=== PATIENT | male | born 1970 | race Caucasian/White ===

== ENCOUNTER 2018-06-26 00:27 | Emergency (ER) | payer OTHER ==
[~2018-06-26] VITALS: Ht 180.3 cm; Wt 93.3 kg
[2018-06-26 04:04] LABS: HEMATOCRIT 39.1 % (38.0-50.0); HEMOGLOBIN 13.2 G/DL (12.5-16.6); MCH 30.1 PG (29.0-34.0); MCHC 33.8 G/DL (30.0-36.0); MCV 89.1 FL (86-99); PLATELET COUNT 257 K/uL (156-360); RBC DIS.WIDTH-CV 13.2 % (11.8-14.6); RBC DIS.WIDTH-SD 43.3 % (39-53); RED BLOOD COUNT 4.39 M/uL (4.00-5.50); WHITE BLOOD COUNT 11.7 K/uL (4.1-10.2)
[2018-06-26 04:09] LABS: INTER. NORMALIZED RATIO 1.1
[2018-06-26 04:12] LABS: PTT 26.8 SEC (25-37)
[2018-06-26 04:15] LABS: ALBUMIN 3.6 g/dL (3.2-4.8); CHLORIDE 105 mEq/L (99-109); POTASSIUM 3.9 mEq/L (3.7-5.4); SODIUM 139 mEq/L (136-147)
[2018-06-26 04:18] LABS: GLUCOSE 105 mg/dL (70-99); TOTAL PROTEIN 7.2 g/dL (6.4-8.3)
[2018-06-26 04:20] LABS: TOTAL BILIRUBIN 0.4 mg/dL (0.0-1.0)
[2018-06-26 04:21] LABS: ALKALINE PHOSPHATASE 107 IU/L (3-129); CREATININE 1.4 mg/dL (0.6-1.3); GFR ESTIMATE (CALCULATED) 58 mL/min/ (58.99-99999)
[2018-06-26 04:22] LABS: UREA NITROGEN (BUN) 25 mg/dL (9-23)
[2018-06-26 04:23] LABS: AST (GOT) 19 IU/L (2-34)
[2018-06-26 04:24] LABS: ALT (GPT) 17 IU/L (3-49)
[2018-06-26 06:00] VITALS: BP 128/66
[2018-06-26] MEDS ORDERED: IBU600 MG PO (08:59)
== END 2018-06-26 09:22 | disposition home or self-care (01) ==
LOC: EME 00:27
PROVIDERS: Emergency Medicine
PROC: 0H9EXZZ Drainage of Left Lower Arm Skin, External Approach (ICD-10-PCS; principal; 2018-06-26)
DX: L02.414 Cutaneous abscess of left upper limb (principal); L03.114 Cellulitis of left upper limb
CPT/HCPCS: 80053; 83605; 85027; 85610; 85730; 86850; 86900; 86901; 87040; 99281; 99284; J0696; J3370; J7030